=== PATIENT | male | born 1995 | race Caucasian/White ===

== ENCOUNTER → 2019-08-23 12:03 | Outpatient (BNVA) | payer BC, SELFPAY | PROVIDERS: PCP Family Medicine; Visit Provider Family Medicine | DX: R05 Cough (principal); J20.8 Acute bronchitis due to other specified organisms; J02.9 Acute pharyngitis, unspecified; J06.9 Acute upper respiratory infection, unspecified; B96.89 Other specified bacterial agents as the cause of diseases classified elsewhere | CPT/HCPCS: 87081; 87400; 87880 ==

== ENCOUNTER → 2022-05-18 10:26 | Outpatient (BNVA) | payer BC, SELFPAY | PROVIDERS: PCP Family Medicine; Visit Provider Emergency Medicine | DX: R50.9 Fever, unspecified (principal); B34.9 Viral infection, unspecified | CPT/HCPCS: 87400 ==